=== PATIENT | female | born 1955 | race Caucasian/White ===

== ENCOUNTER → 2020-04-01 | Outpatient (CLI) | payer MEDICARE ==
--- NOTE | 2020-04-02 10:08 | PATHOLOGY ---
Note [facility] Accession Number: [id number] TESTS RESULT FLAG UNITS REF RANGE LAB Clinician Provided Cytology Information No. of containers..01 Other (Miscellaneous) Source: RIGHT THYROID NODULE DIAGNOSIS: RIGHT THYROID NODULE INADEQUATE, INSUFFICIENT CELLS FOR STUDY. ABUNDANT RED BLOOD CELLS ARE PRESENT. THIS INTERPRETATION INCLUDES EVALUATION OF A CELL BLOCK. Signed out by: 02 Hugo Braga MD, Pathologist NPI- [id number] Performed by: Mary Trejo, Parlor Maid ([facility]) Gross description: 01 30ML, CLEAR RED, 2F 2A 2HE /LCS 04/01/2020 1733 Local FLAG LEGEND: L-Low Normal,H-High Normal,LL-Alert Low,HH-Alert High <-Panic Low,>-Panic High,A-Abnormal,AA-Critical Abnormal Performed at: [facility] [address] [place] [address] [address] [place] [address] Britton Preciado MD, 02 [facility] [address] [address] Hugo Braga MD, Specimen Comment: A courtesy copy of this report has been sent to [phone], [phone] Specimen Comment: [phone], Specimen Comment: Report sent to ,DR KESSLER / DR MATTHEW Specimen Comment: A duplicate report has been generated due to demographic updates. Performed at: 01 [facility] [address], [place], [place] [id number] MD Britton Preciado MD Phone: [phone]
--- NOTE | 2020-04-02 14:15 | RAD ---
Ultrasound-Guided rightThyroid FNA: History: right-sided thyroid nodule discovered on outside ultrasound of 02/12/2020 at diagnostic imaging centers. Findings: Limited sonographic examination confirms nodule in the right lobe of the thyroid. Relative benefits, risks and alternatives to the procedure were discussed and written informed consent was obtained. The patient was carefully prepped and draped in a sterile fashion and with ultrasound guidance and local anesthetic, 25-gauge needles were advanced and the target nodule was sampled via capillary action as well as with negative pressure suction using a syringe. A small amount of hemorrhage was retrieved in the cylinder during each pass with the syringe. Four passes were obtained. Cytology was prepped by our federal agent and specimens were sent to cytology. The procedure was well tolerated and the patient was sent home in good condition with instructions to contact physician should develop signs or symptoms of a complication such as pain, bleeding, fever, chills or other signs of infection. Impression: 1. Status post ultrasound-guided thyroid FNA. 2. Cytology is pending. 3. If the cytology is benign, a 6 month followup ultrasound is recommended.
== END | disposition home or self-care (01) ==
LOC: US 10:42
PROVIDERS: ATTEND Surgery
DX: E04.1 Nontoxic single thyroid nodule (principal); Z88.0 Allergy status to penicillin; Z88.8 Allergy status to other drugs, medicaments and biological substances
CPT/HCPCS: 10005; 60300; 76942; 88173; 88305

== ENCOUNTER → 2020-05-02 | Outpatient (CLI) | payer MEDICARE ==
--- NOTE | 2020-05-02 15:28 | RAD ---
Examination: US GUID NDL PLACE/ASPI/BX History: Reason: RT THYROID NODULE / Spl. Instructions: / History: Comparison/Correlation: 02/12/2020 thyroid ultrasound exam performed at an outside facility, 04/01/2020 thyroid ultrasound biopsy images Findings: Risks, benefits, and alternatives regarding right thyroid nodule fine-needle aspiration were discussed with the patient and informed consent was obtained. Cleansing with ChloraPrep at the anticipated site of needle placement was performed. Sterile draping, sterile gel, and sterile probe cover is were utilized. Approximately 5 of 1 percent lidocaine was administered subcutaneously and along the expected course of the needle track. Lateral approach was utilized. Sterile gel and sterile drapes were utilized. Sterile probe cover utilized. Total of 5 passes were made with 5 different 25-gauge needles with their associated syringes. These were obtained throughout the dominant right mid to lower thyroid lobe nodule which is heterogeneously isoechoic. A total of 2 Rotex needles were utilized through different portions of the nodule. Specimens were provided to the catheterization laboratory technician present. Lab samples are reportedly adequate. Impression: Successful right thyroid lobe nodule fine-needle aspiration. Electronically signed by: Rito Gonzalez MD (05/02/2020 3:25 PM) [id number]
--- NOTE | 2020-05-03 11:07 | PATHOLOGY ---
Note [facility] Accession Number: [id number] TESTS RESULT FLAG UNITS REF RANGE LAB Clinician Provided Cytology Information No. of containers..01 Other (Miscellaneous) Source: RIGHT THYROID NODULE DIAGNOSIS: RIGHT THYROID NODULE NEGATIVE FOR MALIGNANT CELLS. COLLOID IS PRESENT. THIN HYPOCELLULAR SMEAR(S) CONSIDERED ONLY MARGINALLY ADEQUATE FOR VALID CYTOPATHOLOGIC INTERPRETATION. PLEASE REPEAT FOR FURTHER STUDY AND CONFIRMATION. THIS INTERPRETATION INCLUDES EVALUATION OF A CELL BLOCK. Signed out by: 02 Hugo Braga MD, Pathologist NPI- [id number] Performed by: Mary Trejo, School Psychologist ([facility]) Gross description: 01 30ML, RED, 3F 3A 3HE /LCS 05/02/2020 1704 Local FLAG LEGEND: L-Low Normal,H-High Normal,LL-Alert Low,HH-Alert High <-Panic Low,>-Panic High,A-Abnormal,AA-Critical Abnormal Performed at: [facility] [address] [place] [address] [address] [place] [address] Britton Preciado MD, [address] [address] Hugo Braga MD, Specimen Comment: A courtesy copy of this report has been sent to [phone] Specimen Comment: [phone], Specimen Comment: Report sent to ,DR KESSLER / DR MATTHEW Specimen Comment: A duplicate report has been generated due to demographic updates. Performed at: [address], [place], [place] [id number] MD Britton Preciado MD Phone: [phone]
== END ==
LOC: US 10:29
PROVIDERS: ATTEND Surgery
DX: E04.1 Nontoxic single thyroid nodule (principal); Z88.0 Allergy status to penicillin; Z88.8 Allergy status to other drugs, medicaments and biological substances
CPT/HCPCS: 10005; 76942; 88173; 88305

== ENCOUNTER → 2020-12-18 | Outpatient (CLI) | payer MEDICARE ==
--- NOTE | 2020-12-18 08:29 | KCIC ---
INDICATION: Reason: ABDOMEN PELVIS PAIN / Spl. Instructions: / History: COMPARISON: None. TECHNIQUE: Grayscale and color ultrasound images uterus and adnexa. Transabdominal and transvaginal images obtained. Transvaginal images were needed to better visualize structures that were limited on transabdominal imaging. FINDINGS: Uterus: 74 x 39 x 33 mm. 4 millimeter endometrial stripe. Right Ovary: 11 x 11 x 9 mm. Left Ovary: 12 x 11 x 8 mm. Vascular flow identified to bilateral ovaries. IMPRESSION: * Vascular flow seen to the ovaries. Electronically signed by: Michael Montes MD (12/18/2020 8:26 AM) [id number]
--- NOTE | 2020-12-18 09:47 | KCIC ---
Examination: Ultrasound abdomen complete HISTORY: History of abdominal pain COMPARISON: None available. FINDINGS: The liver length measures 11 cm. The common bile duct is 1.3 mm in transverse dimension. Gallbladder wall thickness measures 1.8 mm. No evidence of gallstones. The right kidney measures 10.7 x 5.0 x 4.9 cm. 2.4 cm cyst right kidney. Left kidney measures 10.6 x 3.4 x 5.4 cm. There is a 5 mm calculus left kidney. The spleen measures 9.7 cm in length. The visuali zed aorta, IVC within normal limits. The visualized pancreas grossly appears unremarkable. IMPRESSION: 1. 4.8 mm calculus left kidney. 2. 2.5 cm cyst right kidney. Electronically signed by: Daniel Carson MD (12/18/2020 9:45 AM) [id number]
== END ==
LOC: KCIC US 07:53
PROVIDERS: ATTEND Family Medicine
DX: N28.1 Cyst of kidney, acquired (principal); N20.0 Calculus of kidney
CPT/HCPCS: 76700; 76856